=== PATIENT | female | born 1965 | race American Indian/Alaskan Native ===

== ENCOUNTER → 2018-11-13 | Outpatient (CLI) | payer OTHER ==
[~2018-11-13] MED LIST: ALBU90OI; ASCO500 PO; ATEN25 PO; BIO IDENTICAL; DHEA PO; ERGO50000 PO; ESTR2; HYDACE5 PO; IBUP800 PO; METO25ER; MONT10T; MULT50L; MULVITMIND PO; ONDA4ODT MM; OXYACE5T PO; PROG100; RXONDA4ODT MM; RXOXYACE PO; SULTRIDS PO; UBID10 PO; [UNRECOGNIZED DRUG - REMARK]
== END | disposition home or self-care (01) ==
LOC: PLD 15:56 → LAB SHORT 15:56
DX: L30.8 Other specified dermatitis (principal)
CPT/HCPCS: 88305

== ENCOUNTER 2019-03-03 19:19 | Emergency (ER) | payer OTHER ==
[~2019-03-03] VITALS: Ht 167.6 cm; Wt 81.7 kg
[2019-03-03 19:48] LABS: BASOPHILS ABSOLUTE AUTO 0.03 K/mm3 (0.00-0.23); BASOPHILS PERCENT AUTO 0 % (0-2); EOSINOPHILS ABSOLUTE AUTO 0.18 K/mm3 (0.00-0.68); EOSINOPHILS PERCENT AUTO 2 % (0-6); Hematocrit 41.7 % (33.0-51.0); IMMATURE GRAN ABSOLUTE AUTO 0.03 K/mm3 (0.00-0.10); IMMATURE GRAN PERCENT AUTO 0 % (0-1); LYMPHOCYTES ABSOLUTE AUTO 2.88 K/mm3 (0.84-5.20); LYMPHOCYTES PERCENT AUTO 32 % (21-46); MONOCYTES ABSOLUTE AUTO 0.69 K/mm3 (0.16-1.47); MONOCYTES PERCENT AUTO 8 % (4-13); Mean Corpuscular HGB 30.4 pg (26.0-34.0); Mean Corpuscular HGB Conc 33.6 g/dL (31.5-36.5); Mean Corpuscular Volume 91 fL (80-100); Mean Platelet Volume 10.7 fL (9.1-12.4); NEUTROPHILS ABSOLUTE AUTO 5.17 K/mm3 (1.96-9.15); NEUTROPHILS PERCENT AUTO 58 % (41-73); Platelet Count 234 K/mm3 (150-400); RDW Coefficient Variation 13.6 % (11.7-14.2); RDW Standard Deviation 45.4 fL (35.1-46.3); Red Blood Cell Count 4.61 M/mm3 (3.80-5.20); White Blood Cell Count 8.98 K/mm3 (4.00-11.30)
[2019-03-03 20:14] LABS: Alanine Aminotransfer (ALT/SGP 31 U/L (12-78); Albumin/Globulin Ratio 1.2 (0.8-1.8); Alk Phos 67 U/L (50-136); Anion Gap 5 mmol/L (6-16); Aspartate Aminotrans (AST/SGOT 23 U/L (12-37); Bilirubin, Total 0.2 mg/dL (0.1-1.0); Blood Urea Nitrogen 23 mg/dL (8-24); Bun/Creatinine Ratio 18.7 (12.0-20.0); CO2, Blood 27 mmol/L (21-32); Calcium, Blood 9.1 mg/dL (8.5-10.1); Chloride, Blood 105 mmol/L (98-108); Creatinine, Blood 1.23 mg/dL (0.40-1.00); Globulin, Blood 3.3 g/dL (2.2-4.0); Glomerular Filtration Rate 48 (60-); Glucose, Blood 91 mg/dL (70-99); Magnesium, Blood 2.1 mg/dL (1.6-2.4); Potassium, Blood 4.2 mmol/L (3.5-5.5); Sodium, Blood 137 mmol/L (136-145); Total Protein, Blood 7.3 g/dL (6.4-8.2); Troponin I <0.015 ng/mL (0.000-0.040)
[2019-03-03] MEDS ORDERED: LEVO-T25 MCG PO (20:38)
[2019-03-03] MEDS ORDERED: LIOT5 PO (20:38)
[2019-03-03] MEDS ORDERED: KELP150 MCG PO (20:39)
[2019-03-03] MEDS ORDERED: B-121000 MCG (20:44)
[2019-03-03] MEDS ORDERED: DHEA 10 MG TAB1 EACH PO (20:45)
[2019-03-03] MEDS ORDERED: ZINC50 M2 (20:46)
[2019-03-03] MEDS ORDERED: SELENIUM200 MC1 PO (20:47)
[2019-03-03] MEDS ORDERED: BOSWELLIA SERRAT1 GM MC (20:48)
[2019-03-03] MEDS ORDERED: QUERCETIN DIHYDR1 GM MC (20:48)
[2019-03-03] MEDS ORDERED: TURMERIC 500 M1 EACH PO (20:48)
[2019-03-03] MEDS ORDERED: OMEG1CAP30 (20:49)
[2019-03-03] MEDS ORDERED: CALCITRATE200 MG PO (20:49)
[2019-03-03] MEDS ORDERED: ALPHA LIPOIC A200 MG PO (20:49)
[2019-03-03] MEDS ORDERED: Hair, Skin & N1 EACH PO (20:50)
[2019-03-03] MEDS ORDERED: Cinnamon500 MG (20:50)
[2019-03-03] MEDS ORDERED: PEPSIN 3,000 DIG1 GM (20:50)
== END 2019-03-03 22:31 | disposition home or self-care (01) ==
LOC: ER 19:19
PROVIDERS: Physician Assistant
DX: R07.2 Precordial pain (principal); I48.91 Unspecified atrial fibrillation; E78.00 Pure hypercholesterolemia, unspecified; E11.9 Type 2 diabetes mellitus without complications; Z90.710 Acquired absence of both cervix and uterus; Z90.49 Acquired absence of other specified parts of digestive tract; Z87.891 Personal history of nicotine dependence; Z88.5 Allergy status to narcotic agent; Z88.1 Allergy status to other antibiotic agents; Z88.8 Allergy status to other drugs, medicaments and biological substances; Z79.899 Other long term (current) drug therapy
CPT/HCPCS: 36415; 71046; 80053; 83735; 84484; 85025; 85379; 93005; 93010; 99284-25

== ENCOUNTER → 2021-03-20 | Outpatient (CLI) | payer OTHER ==
[~2021-03-20] MED LIST changes: +ALPHA LIPOIC A200 MG PO; +B-121000 MCG; +BOSWELLIA SERRAT1 GM MC; +CALCITRATE200 MG PO; +Cinnamon500 MG; +DHEA 10 MG TAB1 EACH PO; +Hair, Skin & N1 EACH PO; +KELP150 MCG PO; +LEVO-T25 MCG PO; +LIOT5 PO; +OMEG1CAP30; +PEPSIN 3,000 DIG1 GM; +QUERCETIN DIHYDR1 GM MC; +SELENIUM200 MC1 PO; +TURMERIC 500 M1 EACH PO; +ZINC50 M2
== END ==
LOC: LAB SHORT 10:20
DX: R30.0 Dysuria (principal); M54.5 Low back pain
CPT/HCPCS: 87086